=== PATIENT | female | born 1990 | race Caucasian/White ===

== ENCOUNTER 2017-06-23 13:48 | Emergency (ER) | payer MEDICAID, SELFPAY ==
[2017-06-23 13:48] VITALS: BP 138/74; PULSE 93; RESP 16; TEMP 36.9; O2SAT 99; BMI 23.3
--- NOTE | 2017-06-23 14:28 | ED.VISSUMM ---
- ER Visit Summary Date of Service: 06/23/17 Chief Complaint: Post tooth extraction dental pain History of Present Illness: The patient is a 26 F who had right mandibular second molar extracted 1 week ago presents for severe right-sided facial pain. Had the molars extracted bilaterally and has had no issues with the left side. She has had gradually worsening pain at the site of her extraction that is now radiating into the cheek, up to the ear, and into the anterior jaw. She denies fever, difficulty swallowing or breathing. She has taken NSAIDs and Tylenol 3 with minimal relief. She has an appointment in 2 days for reevaluation due to this pain. Patient states the pain is so severe she could not wait until Sunday for another evaluation. Physical Examination: Vital signs: afebrile, hemodynamically stable, no hypoxia on room air General: well nourished, well developed, in no distress Skin: warm, dry, no rash, no pallor HEENT: normocephalic and atraumatic; PERRL, EOMI, moist mucous membranes, diffuse dental decay, bilateral second molar extractions with no erythema, blood clot noted, and redness to the gum, or abscess noted. No facial swelling. TMs are clear bilaterally. Neck is supple and nontender, no lymphadenopathy. Asymmetry to the oropharynx or neck. Cardiovascular: regular rate and rhythm without murmurs, no peripheral edema, 2+ pulses all distal extremities Respiratory: No increased work of breathing Test Results: [] Emergency Department Course and Treatment: Patient presents with worsening facial pain after dental extraction. Her examination did not show any obvious findings concerning for dry socket or abscess, but complaints were concerning for dry socket. No facial swelling or signs of cellulitis. She was prescribed penicillin for concern for possible dental infection and given a small prescription for [place] for severe pain until she follows up with her dentist on Sunday. Patient agreed with this plan was discharged home. Treatment Plan: [] Disposition: [] Impression: Post dental extraction pain, concern for dry socket This note was generated with [employer] dictation software. It may contain incorrect words, spelling, and punctuation that were not noted in review of the chart prior to signing ED Disposition - Plan for ED Patient: Disposition: Home or Assisted Living Chief Complaint: Dental Instructions: ED Tooth Pain Prescriptions: Hydrocodone Bitart/Apap 5-325 [[place] 5/325] 1 tab PO Q6H PRN PRN 2 Days #8 tab PRN Reason: Pain Penicillin V Potassium 500 mg PO 4X/DAY #40 tab Referrals: Care Physician,No Primary [Primary Care Provider] - Additional Instructions: Keep your appointment on Sunday with your dentist for another evaluation. In the meantime you may use the [place] as needed for pain. Take the penicillin to help with any possible infection. Do not discontinue the penicillin unless instructed to by her dentist. Follow all instructions that were given to you by your dentist for post extraction care. Of any further concerns or worsening of your condition, please come back to the emergency department for another evaluation.
--- NOTE | 2017-06-23 14:31 | ED.DEP ---
ED Disposition - Plan for ED Patient: Disposition: Home or Assisted Living Chief Complaint: Dental Instructions: ED Tooth Pain Prescriptions: Hydrocodone Bitart/Apap 5-325 [[place] 5/325] 1 tab PO Q6H PRN PRN 2 Days #8 tab PRN Reason: Pain Penicillin V Potassium 500 mg PO 4X/DAY #40 tab Referrals: Care Physician,No Primary [Primary Care Provider] - Additional Instructions: Keep your appointment on Sunday with your dentist for another evaluation. In the meantime you may use the [place] as needed for pain. Take the penicillin to help with any possible infection. Do not discontinue the penicillin unless instructed to by her dentist. Follow all instructions that were given to you by your dentist for post extraction care. Of any further concerns or worsening of your condition, please come back to the emergency department for another evaluation.
[2017-06-23 14:49] VITALS: BP 118/69; PULSE 75; RESP 15; O2SAT 98
== END 2017-06-23 14:49 | disposition home or self-care (01) ==
PROVIDERS: Emergency Provider Emergency Medicine
DX: M27.3 Alveolitis of jaws (principal); K08.89 Other specified disorders of teeth and supporting structures; K08.409 Partial loss of teeth, unspecified cause, unspecified class; Z72.0 Tobacco use
CPT/HCPCS: 99282

== ENCOUNTER 2017-08-20 10:30 | Emergency (ER) | payer MEDICAID, SELFPAY ==
[2017-08-20 10:30] VITALS: BP 147/78; PULSE 77; RESP 16; TEMP 36.6; O2SAT 99; BMI 23.9
--- NOTE | 2017-08-20 10:52 | ED.VISSUMM ---
- ER Visit Summary Date of Service: 08/20/17 Chief Complaint: [Dental pain] History of Present Illness: The patient is a 26 F [presents to the emergency department with pain in her left upper gum and teeth ?4-5 days. Patient states that she has had an appointment with her dentist a week from today. Patient states that she wears a partial for her upper teeth and part of the partial legs up against her left upper gingiva and she is not sure if that is what is irritating and causing discomfort. Patient states she took her partial out last evening and it did seem to help alleviate some of her symptoms. Patient denies any fevers or trauma to her teeth.] Physical Examination: [HEENT-PERRLA, EOMI. Cranial nerves II through XII grossly intact. TMs clear. Mucous membranes moist. No adenopathy. Dentition-patient does have a upper partial and one removed it is noted that she has some mild faint erythema to the left upper gingiva with diffuse tenderness to palpation. Patient also has some tenderness to palpation over the first left upper molar. No obvious abscess noted. There is no facial swelling or cellulitis noted. Interval lacerations or abrasions noted. Cardiovascular-regular rate and rhythm without murmur or ectopy Lungs-clear to auscultation, chest wall stable without crepitus or subcu emphysema Abdomen-normoactive bowel sounds, soft, nontender, no rebound or rigidity, no peritoneal signs. Extremities-intact ?4, normal range of motion, normal pulses, atraumatic] Test Results: [None indicated] Emergency Department Course and Treatment: [Patient will be started on amoxicillin given a prescription for 12 [place] for severe pain. Patient advised to keep her partial out whenever possible.] Treatment Plan: [Patient to follow-up with dentist] Disposition: [Discharged home in stable condition] Impression: [Dental pain] This note was generated with [employer] dictation software. It may contain incorrect words, spelling, and punctuation that were not noted in review of the chart prior to signing ED Disposition - Plan for ED Patient: Chief Complaint: Dental Referrals: Care Physician,No Primary [Primary Care Provider] -
--- NOTE | 2017-08-20 10:55 | ED.DCSUM_ITS ---
- ER Visit Summary Date of Service: 08/20/17 Chief Complaint: [Dental pain] History of Present Illness: The patient is a 26 F [presents to the emergency department with pain in her left upper gum and teeth ?4-5 days. Patient states that she has had an appointment with her dentist a week from today. Patient states that she wears a partial for her upper teeth and part of the partial legs up against her left upper gingiva and she is not sure if that is what is irritating and causing discomfort. Patient states she took her partial out last evening and it did seem to help alleviate some of her symptoms. Patient denies any fevers or trauma to her teeth.] Physical Examination: [HEENT-PERRLA, EOMI. Cranial nerves II through XII grossly intact. TMs clear. Mucous membranes moist. No adenopathy. Dentition- patient does have a upper partial and one removed it is noted that she has some mild faint erythema to the left upper gingiva with diffuse tenderness to palpation. Patient also has some tenderness to palpation over the first left upper molar. No obvious abscess noted. There is no facial swelling or cellulitis noted. Interval lacerations or abrasions noted. Cardiovascular-regular rate and rhythm without murmur or ectopy Lungs-clear to auscultation, chest wall stable without crepitus or subcu emphysema Abdomen-normoactive bowel sounds, soft, nontender, no rebound or rigidity, no peritoneal signs. Extremities-intact ?4, normal range of motion, normal pulses, atraumatic] Test Results: [None indicated] Emergency Department Course and Treatment: [Patient will be started on amoxicillin given a prescription for 12 [place] for severe pain. Patient advised to keep her partial out whenever possible.] Treatment Plan: [Patient to follow-up with dentist] Disposition: [Discharged home in stable condition] Impression: [Dental pain] This note was generated with [employer] dictation software. It may contain incorrect words, spelling, and punctuation that were not noted in review of the chart prior to signing ED Disposition - Plan for ED Patient: Chief Complaint: Dental Referrals: Care Physician,No Primary [Primary Care Provider] -
--- NOTE | 2017-08-20 10:55 | ED.DEP ---
ED Disposition - Plan for ED Patient: Chief Complaint: Dental Instructions: ED Tooth Pain Prescriptions: Hydrocodone Bitart/Apap 5-325 [[place] 5/325] 1 - 2 tab PO Q4H PRN PRN 3 Days #12 tab PRN Reason: Pain Amoxicillin 500 mg PO TID #30 tab Referrals: Care Physician,No Primary [Primary Care Provider] - Additional Instructions: see your dentist
== END 2017-08-20 11:05 | disposition home or self-care (01) ==
PROVIDERS: Emergency Provider Emergency Medicine
DX: K08.89 Other specified disorders of teeth and supporting structures (principal); Z72.0 Tobacco use
CPT/HCPCS: 99282

== ENCOUNTER 2018-02-06 13:20 | Emergency (ER) | payer MEDICAID, SELFPAY ==
[2018-02-06 13:21] VITALS: BP 132/72; PULSE 81; RESP 16; TEMP 36.8; O2SAT 100; BMI 23.9
--- NOTE | 2018-02-06 13:43 | ED.VISSUMM ---
- ER Visit Summary Date of Service: 02/06/18 Chief Complaint: Fall with left hip pain History of Present Illness: The patient is a 27 F prior tubal ligation. Patient states she fell on steps about a month ago. Was not evaluated at time. States she has had intermittent hip pain since that time. Denies any fever. Denies any bruising. Denies any prior hip injury or surgery. Physical Examination: Well-appearing young female. Vital signs are stable. She is afebrile. No distress. HEENT exam unremarkable. Atraumatic. Neck nontender. Lungs good auscultation bilaterally. Heart regular rate and rhythm no murmur. Chest nontender. Abdomen soft nontender. She is moving all 4 extremities. Neurovascular intact. She has mild pain on palpation to the left lateral hip and left posterior buttock. There is no ecchymosis or bruising. There is no redness or warmth. There is no bony deformities. Her lumbar spine is nontender. She has full range of motion to the left hip, knee, ankle and foot. Left foot is neurovascular intact. Neurologically she is awake and alert with no focal motor deficits. Back exam is nontender. Spine nontender. Test Results: X-ray of the left hip and pelvis shows cute abnormality. There is incidental finding of to moderate to large size bladder stones. I did discuss and go over the x-ray with the patient. She will need follow-up for this. Emergency Department Course and Treatment: To home. Tylenol Motrin for pain. Treatment Plan: Follow-up with a urologist for the bladder stones. Disposition: Discharge Impression: Fall Left hip pain Incidental finding of 2 bladder stones This note was generated with [employer] dictation software. It may contain incorrect words, spelling, and punctuation that were not noted in review of the chart prior to signing ED Disposition - Plan for ED Patient: Chief Complaint: Lower Extremity Injury Referrals: Care Physician,No Primary [Primary Care Provider] -
--- NOTE | 2018-02-06 14:00 | RAD_ITS ---
STUDY: X-RAY - PELVIS AND LEFT HIP REASON FOR EXAM: Female, 27 years old. Pain following a fall. TECHNIQUE: Radiological exam, hip, unilateral, with pelvis when performed; 2 or 3 views. COMPARISON: None. FINDINGS: There is a non-specific bowel gas pattern. 2 rounded hyperdensity is seen within the pelvis most likely representing a bladder calculi. The larger measures 2.2 cm x 3 cm. Normal bilateral iliac wings, sacroiliac joints and visualized sacrum. Normal bilateral superior and inferior pubic rami. Normal pubic symphysis. Normal bilateral ischial tuberosities. Normal visualized femoral head. Normal acetabulum. Normal hip joint. RAD/HIP, UNI W/ Pelvis 2-3 Views IMPRESSION: Findings suggestive of 2 urinary bladder stones. Electronically Signed: Chay Lyle MD at 14:19 EDT Tel [phone], Service support ,
--- NOTE | 2018-02-06 15:17 | ED.DEP ---
ED Disposition - Plan for ED Patient: Disposition: Home or Assisted Living Chief Complaint: Lower Extremity Injury Instructions: ED Sprain Hip Referrals: Shoaib Mendiola MD [STAFF PHYSICIAN] - 1-2 Weeks Additional Instructions: X-ray of your left hip is unremarkable. Tylenol Motrin for pain. If not improving you need to follow-up with orthopedic physician. On your pelvic x-ray there is an incidental finding of to moderate size bladder stones. You can follow-up with urologist for further evaluation of this.
[2018-02-06 15:35] VITALS: BP 123/63; PULSE 85; RESP 16; O2SAT 100
== END 2018-02-06 15:36 | disposition home or self-care (01) ==
PROVIDERS: Emergency Provider Emergency Medicine
DX: M25.552 Pain in left hip (principal); N21.0 Calculus in bladder; W10.9XXA Fall (on) (from) unspecified stairs and steps, initial encounter; Y93.9 Activity, unspecified; Z72.0 Tobacco use
CPT/HCPCS: 73502; 99282

== ENCOUNTER 2019-02-06 18:54 | Emergency (ER) | payer MEDICAID, SELFPAY ==
[2019-02-06 18:54] VITALS: BP 132/73; PULSE 91; RESP 16; TEMP 36; BMI 23.6
--- NOTE | 2019-02-06 19:10 | ED.DCSUM_ITS ---
- ER Visit Summary Date of Service: 02/06/19 Chief Complaint: Dental pain History of Present Illness: The patient is a 28 F who reports that she goes to the immediate [place]. She has pain in her right maxillary canine and that began approximately 1 month ago. Is a sharp, aching pain is 10-10 worsened to 10 currently. Is worsened by eating. She taken Tylenol and ibuprofen with minimal relief. Is sensitive to hot and cold temperatures. Patient reports that she has pain to her left maxillary canine and first and second premolar since falling and hitting her face on the car door yesterday. She did not have a loss of consciousness. She is not on anticoagulants. Physical Examination: Vitals: Stable. Afebrile. Mouth: No trismus. No edema of the floor of the mouth. Pain with percussion of right maxillary canine. There are obvious caries here. The posterior third of the tooth is eroded to the gumline. There is no focal abscess. She has pain with percussion of her left maxillary canine, first and second premolars, and first and second molars. There is no focal abscess. There is widespread dental decay here. General: A&O x 3. NAD. Cardiovascular exam: Regular rate and rhythm, no murmur, rub or gallop. Respiratory exam: Clear to auscultation bilaterally. No wheezes or stridor. Abdominal exam: Soft, nontender, nondistended, normal bowel sounds. No peritoneal signs. Extremity: No clubbing, cyanosis, or edema. Emergency Department Course and Treatment: An [facility] report was obtained which shows she had one prescription for opiates in the past year. She drove here tonight and was given penicillin naproxen. Treatment Plan: Patient will be discharged with penicillin, naproxen, and 10 [place]. Instructed to follow-up with dentist as soon as possible. Return to the emergency department for any worsening symptoms. Disposition: To home in improved and stable condition. Impression: 1. Dental pain. This note was generated with [employer] dictation software. It may contain incorrect words, spelling, and punctuation that were not noted in review of the chart prior to signing ED Disposition - Plan for ED Patient: Disposition: Home or Assisted Living Instructions: Dental Pain Prescriptions: Naproxen [Naprosyn] 500 mg PO BID #14 tab Prescription Printed Hydrocodone Bitart/Apap 5-325 [[place] 5MG-325MG] 1 tab PO Q4H PRN PRN 2 Days #10 tab PRN Reason: Pain Prescription Printed Penicillin V Potassium 500 mg PO 4X/DAY #40 tab Prescription Printed Referrals: Dentist,Your [STAFF PHYSICIAN] - As soon as possible
[2019-02-06] MEDS: Naproxen 250 MG Tablet 500 MG PO (19:24)
[2019-02-06] MEDS: Penicillin Vk 250 MG Tablet 500 MG PO (19:24)
== END 2019-02-06 19:27 | disposition home or self-care (01) ==
LOC: ED 19:10
PROVIDERS: Emergency Provider Emergency Medicine
DX: K02.9 Dental caries, unspecified (principal); Z72.0 Tobacco use
CPT/HCPCS: 99283

== ENCOUNTER 2019-08-01 21:15 | Emergency (ER) | payer MEDICAID, SELFPAY ==
[2019-08-01 21:15] VITALS: BP 134/84; PULSE 95; RESP 16; TEMP 36.4; O2SAT 100; BMI 25.7
--- NOTE | 2019-08-01 21:46 | ED.VIS.DENTA ---
History of Present Illness Chief Complaint: Dental Informant: Patient Onset: Today Context: Gradual Onset Relieved by: NSAIDs Narrative: Patient is a 28-year-old female with history of poor dentition and tobacco use presenting with worsening dental pain. Patient states she has pain in her left back molar. She states she is had issues with it and was previously on antibiotics was most of a root canal about 2 weeks ago. This was canceled because of the coronavirus outbreak. Her pain started after her dentist office closes she was unable to call. Patient took 800 mg of ibuprofen prior to arrival but with no relief of her symptoms. She denies any difficulty swallowing. She denies any fever or chills. She denies any difficulty opening her mouth or speaking. No other complaints at this time. Past Medical History - Allergies and Home Meds Allergies/Adverse Reactions: Allergies No Known Allergies Allergy (Verified 08/01/19 21:16) Primary Care Physician: Care Physician,No Primary [Primary Care Provider] - Past Medical History: None Surgical History: noncontributory Lives: Spouse/ Significant Other, With Family Smoking Status: Current every day smoker Review of Systems General: Denies: Chills, Fever, Sweats Eyes: Denies: Visual changes - bilaterally, Diplopia ENT: Reports: - - Left upper back dental pain. Denies: Rhinorrhea, Sore throat Cardiovascular: Denies: Chest pain, Palpitations Respiratory: Denies: Dyspnea, Cough, Dyspnea on exertion Gastrointestinal: Denies: Abdominal pain, Nausea, Vomiting, Diarrhea, Melena, Hematochezia Genitourinary: Denies: Dysuria, Hematuria, Frequency Musculoskeletal: Denies: Back pain, Extremity Pain Skin: Denies: Rash, Wounds Neurological: Denies: Headache, Weakness, Numbness Physical Exam Vital Signs/Narrative: Vital Signs Temp Pulse Resp BP Pulse Ox 08/01/19 21:15 97.6 F L 95 16 134/84 H 100 Inital Vital Signs reviewed: Yes General: Well nourished, Well developed Head: Normocephalic, Atraumatic ENT: Moist mucous membranes, No rhinorrhea, TM's clear Mouth/Throat: Normal inspection lips/gums, Normal oral mucosa, No sublingual edema, Tenderness on tooth percussion - 16, - - Significant erosion and caries of the left back molar, 16th tooth. No trismus. Negative for: Dental trauma, Dental abscess, Focal gum swelling Neck: Supple, No lymphadenopathy, Nontender, No JVD Cardiovascular: Regular rate, Regular rhythm, No murmurs Respiratory: No distress, CTA bilaterally, Chest nontender Back: Nontender, Normal Inspection Extremities: Nontender, No edema Skin: Normal color, No rash Neurological: Alert, Oriented x3, Cranial nerves II-XII grossly intact Psychological: Normal affect Diagnostic/Tx/Re-eval - Medical Decision Making Regional and Local Dental Anesthesia: Marcaine, - - Left posterior superior alveolar block Patient is evaluated for dental pain. She is given a dental block as well as first dose of Augmentin in the emergency room. Patient will be given a handful of [place] for breakthrough pain control. She is also given a prescription for Augmentin and ibuprofen. She will call her dentist office on Sunday. She does not have any signs of abscess, Kaden's angina or other severe features. She is counseled on tobacco cessation. Patient is counseled on signs and symptoms requiring return to the emergency room. Patient verbalizes agreement and understand this plan. Patient discharged home in stable and improved condition. [facility] report shows no recent opioid prescriptions. ED Disposition - Plan for ED Patient: Disposition: Home or Assisted Living Diagnosis: Dentalgia Instructions: ED Tooth Pain Prescriptions: Amoxicillin/Potassium Clav [Augmentin 875-125 Tablet] 1 ea PO BID #20 tab Prescription Printed Ibuprofen 600 mg PO 4X/DAY PRN #20 tab PRN Reason: Pain/Inflammation Prescription Printed Hydrocodone/Acetaminophen [[place] 5-325 Tablet] 1 ea PO Q8 PRN 2 Days #6 tab PRN Reason: Pain Score 6-10/10 Prescription Printed
[2019-08-01] MEDS: Bupivacaine 0.5%/Epi 1.8 ML Syringe INFILT (22:02)
[2019-08-01] MEDS: Amox/Clavulanate 875 MG Tablet PO (22:04)
== END 2019-08-01 22:13 | disposition home or self-care (01) ==
PROVIDERS: Emergency Provider Emergency Medicine
DX: K02.9 Dental caries, unspecified (principal); F17.200 Nicotine dependence, unspecified, uncomplicated
CPT/HCPCS: 64450; 99283